=== PATIENT | male | born 1965 | race Caucasian/White ===

== ENCOUNTER → 2019-04-14 | Outpatient (CLI) | payer BC ==
--- NOTE | 2019-04-15 22:23 | EST ---
EXERCISE STRESS DATE OF SERVICE: 04/14/2019 AGE: 53 SEX: M HT: 73 WT: 250 PROTOCOL: Stress Echo STAGE: III DURATION OF EXERCISE: 9 minutes HEART RATE REST: 88 BLOOD PRESSURE REST: 94/67 MAXIMUM HEART RATE ACHIEVED: 159 MAXIMUM BLOOD PRESSURE: 195/77 85% MPHR: 144 100% MPHR: 169 METS: 10.3 INDICATIONS: Chest pain. RESULTS: STRESS DATA: heart rate is 88, pressure is 94/67 mmHg. Baseline EKG showed sinus mechanism. The patient exercised on the treadmill according to Bernard protocol for a total of 9 minutes and achieved 10.3 METS. Max heart rate was 159, which is about 94% of maximum predicted heart rate with maximum blood pressure was 195/77 mmHg. Clinically the patient did not have any symptoms of chest pain or discomfort and the EKG did not show any significant ST or T-wave abnormalities concerning for ischemia. ECHOCARDIOGRAM IMAGES: On echocardiogram images from parasternal long axis view, parasternal short axis view apical 4 chamber, apical 2 chamber view, where the baseline images, at the peak of the heart rate as well as on recovery. The echocardiogram showed good augmentation in the left ventricular systolic function without any evidence of wall motion abnormalities concerning for ischemia. CONCLUSION: 1. Excellent exercise tolerance. 2. Normal EKG in response to exercise. 3. Normal echocardiogram in response to exercise. 4. Essentially normal stress test for the patient. MMODL / IJN: [id number] /
== END | disposition home or self-care (01) ==
LOC: RADNMMAIN 09:00
PROVIDERS: ATTEND Family Medicine
DX: R00.2 Palpitations (principal)
CPT/HCPCS: 93351

== ENCOUNTER → 2022-04-18 | Outpatient (CLI) | payer BC ==
--- NOTE | 2022-04-18 11:07 | XR ---
EXAMINATION TYPE: XR chest 2V DATE OF EXAM: 04/18/2022 COMPARISON: NONE TECHNIQUE: PA and lateral views submitted. HISTORY: Hypertension FINDINGS: The lungs are clear and there is no pneumothorax, pleural effusion, or focal pneumonia. Reduced ins piration. Heart size normal with no overt failure. Biapical pleural thickening. Subsegmental changes at the lung bases. IMPRESSION: 1. Subsegmental changes bilateral lung bases is felt to be more likely related to atelectasis from re duced inspiration rather than pneumonia correlate clinically..
== END | disposition home or self-care (01) ==
LOC: RADXRMAIN 10:31
PROVIDERS: ATTEND Internal Medicine Hematology & Oncology
DX: D75.1 Secondary polycythemia (principal); I10 Essential (primary) hypertension; E78.5 Hyperlipidemia, unspecified
CPT/HCPCS: 71046